=== PATIENT | male | born 1975 | race African-American/Black ===

== ENCOUNTER 2020-05-28 13:08 | Emergency (ER) | payer SELFPAY ==
[~2020-05-28] VITALS: Ht 177.8 cm; Wt 82.0 kg
[2020-05-28 14:23] LABS: BASO # 0.1 x10^3/uL (0.0-0.2); BASO % 1 % (0-3); EOS # 0.3 x10^3/uL (0.0-0.7); EOS % 5 % (0-3); HEMOGLOBIN 15.2 g/dL (13.0-17.5); LYMPH # 1.5 x10^3/uL (1.0-4.8); LYMPH % 22 % (24-48); MEAN CORPUSCULAR HEMOGLOBIN 27 pg (25-35); MEAN CORPUSCULAR HGB CONC 33 g/dL (31-37); MEAN CORPUSCULAR VOLUME 83 fL (79-100); MONO # 0.9 x10^3/uL (0.0-1.1); MONO % 13 % (0-9); NEUT # 3.9 x10^3/uL (1.8-7.7); NEUT % 59 % (31-73); PLATELET COUNT 347 x10^3/uL (140-400); RED BLOOD COUNT 5.55 x10^6/uL (4.30-5.70); RED CELL DISTRIBUTION WIDTH 14.6 % (11.5-14.5); WHITE BLOOD COUNT 6.7 x10^3/uL (4.0-11.0)
[2020-05-28] MEDS ORDERED: cefTRIAXone IV Push 1 GM VIAL. IVP ONE (14:30)
[2020-05-28] MEDS ORDERED: metroNIDAZOLE 500 MG TABLET PO ONE (14:30)
[2020-05-28] MEDS ORDERED: IV NORMAL SALINE 1000ML BAG 1,000 ML IV ONE (14:30)
[2020-05-28] MEDS ORDERED: AZITHROMYCIN 250 MG TABLET. PO ONE (14:30)
[2020-05-28 14:33] LABS: PROTHROMBIN TIME PATIENT 14.2 SEC (11.7-14.0)
[2020-05-28 14:43] LABS: CALCIUM 9.2 mg/dL (8.5-10.1); CREATININE 0.9 mg/dL (0.7-1.3); GFR 110.9; POTASSIUM 4.2 mmol/L (3.5-5.1)
--- NOTE | 2020-05-28 14:48 | RAD ---
PORTABLE CHEST 1V History: Fever, body aches Comparison: None. Findings: Single view of the chest is submitted. There is no dependent pleural fluid, pneumothorax, or lobar infiltrate. Heart size is considered within normal limits. Impression: 1. No significant infiltrate is identified by radiograph. Electronically signed by: Ishaan Bhakta MD (05/28/2020 2:45 PM) [id number]
[2020-05-28 14:55] LABS: ALBUMIN 3.5 g/dL (3.4-5.0); CREATINE KINASE 68 U/L (39-308); TOTAL BILIRUBIN 0.5 mg/dL (0.2-1.0); TOTAL PROTEIN 6.9 g/dL (6.4-8.2)
--- NOTE | 2020-05-28 15:27 | PHYS DOC ---
Past Medical History Past Medical History: No Pertinent History Past Surgical History: No Surgical History Smoking Status: Current Some Day Smoker Alcohol Use: None General Adult EDM: Chief Complaint: GENERALIZED BODY ACHES HPI: HPI: Patient is a 45 year old male with no significant medical history who presents to the ED today complaining of body aches for 2 days. Patient is also complaining of subjective fevers. Patient is also concerned about STDs, he states he has had dysuria and would like to be treated. Review of Systems: Review of Systems: Constitutional: Reports body aches. Denies fever or chills. [] Eyes: Denies change in visual acuity. [] HENT: Denies nasal congestion or sore throat. [] Respiratory: Denies cough or shortness of breath. [] Cardiovascular: Denies chest pain or edema. [] GI: Denies abdominal pain, nausea, vomiting, bloody stools or diarrhea. [] : Reports dysuria and concern for STDs Musculoskeletal: Denies back pain or joint pain. [] Integument: Denies rash. [] Neurologic: Denies headache, focal weakness or sensory changes. [] Endocrine: Denies polyuria or polydipsia. [] Lymphatic: Denies swollen glands. [] Psychiatric: Denies depression or anxiety. [] Heart Score: Risk Factors: Risk Factors: DM, Current or recent (<one month) smoker, HTN, HLP, family history of CAD, obesity. Risk Scores: Score 0 - 3: 2.5% MACE over next 6 weeks - Discharge Home Score 4 - 6: 20.3% MACE over next 6 weeks - Admit for Clinical Observation Score 7 - 10: 72.7% MACE over next 6 weeks - Early Invasive Strategies Current Medications: Current Medications Medications (Trade) Dose Ordered Sig/Giovana Start Time Stop Time Status Last Admin Dose Admin Azithromycin (Zithromax) 1,000 mg 1X ONCE 05/28/20 14:30 05/28/20 14:31 DC 05/28/20 14:26 1,000 MG Ceftriaxone Sodium (Rocephin) 1 gm 1X ONCE 05/28/20 14:30 05/28/20 14:31 DC 05/28/20 14:26 1 GM Metronidazole (Flagyl) 2,000 mg 1X ONCE 05/28/20 14:30 05/28/20 14:31 DC 05/28/20 14:26 2,000 MG Sodium Chloride 1,000 ml @ 1,000 mls/hr 1X ONCE 05/28/20 14:30 05/28/20 15:29 05/28/20 14:30 1,000 MLS/HR Allergies: Allergies: Allergies Coded Allergies Type Severity Reaction Last Updated Verified No Known Drug Allergies 05/28/20 No Physical Exam: PE: Constitutional: Well developed, well nourished, no acute distress, non-toxic appearance. [] HENT: Normocephalic, atraumatic, bilateral external ears normal, oropharynx moist, no oral exudates, nose normal. [] Eyes: PERRLA, EOMI, conjunctiva normal, no discharge. [] Neck: Normal range of motion, no tenderness, supple, no stridor. [] Cardiovascular:Heart rate regular rhythm, no murmur [] Lungs & Thorax: Bilateral breath sounds clear to auscultation [] Abdomen: Bowel sounds normal, soft, no tenderness, no masses, no pulsatile masses. [] Skin: Warm, dry, no erythema, no rash. [] Back: No tenderness, no CVA tenderness. [] Extremities: No tenderness, no cyanosis, no clubbing, ROM intact, no edema. [] Neurologic: Alert and oriented X 3, normal motor function, normal sensory function, no focal deficits noted. [] Psychologic: Affect normal, judgement normal, mood normal. [] Current Patient Data: Labs: Laboratory Tests Test 05/28/20 14:05 White Blood Count 6.7 x10^3/uL (4.0-11.0) Red Blood Count 5.55 x10^6/uL (4.30-5.70) Hemoglobin 15.2 g/dL (13.0-17.5) Hematocrit 46.0 % (39.0-53.0) Mean Corpuscular Volume 83 fL (79-100) Mean Corpuscular Hemoglobin 27 pg (25-35) Mean Corpuscular Hemoglobin Concent 33 g/dL (31-37) Red Cell Distribution Width 14.6 % (11.5-14.5) H Platelet Count 347 x10^3/uL (140-400) Neutrophils (%) (Auto) 59 % (31-73) Lymphocytes (%) (Auto) 22 % (24-48) L Monocytes (%) (Auto) 13 % (0-9) H Eosinophils (%) (Auto) 5 % (0-3) H Basophils (%) (Auto) 1 % (0-3) Neutrophils # (Auto) 3.9 x10^3/uL (1.8-7.7) Lymphocytes # (Auto) 1.5 x10^3/uL (1.0-4.8) Monocytes # (Auto) 0.9 x10^3/uL (0.0-1.1) Eosinophils # (Auto) 0.3 x10^3/uL (0.0-0.7) Basophils # (Auto) 0.1 x10^3/uL (0.0-0.2) Prothrombin Time 14.2 SEC (11.7-14.0) H Prothrombin Time INR 1.1 (0.8-1.1) Activated Partial Thromboplast Time 33 SEC (24-38) Sodium Level 140 mmol/L (136-145) Potassium Level 4.2 mmol/L (3.5-5.1) Chloride Level 101 mmol/L (98-107) Carbon Dioxide Level 32 mmol/L (21-32) Anion Gap 7 (6-14) Blood Urea Nitrogen 14 mg/dL (8-26) Creatinine 0.9 mg/dL (0.7-1.3) Estimated GFR (Cockcroft-Gault) 110.9 BUN/Creatinine Ratio 16 (6-20) Glucose Level 91 mg/dL (70-99) Lactic Acid Level 1.1 mmol/L (0.4-2.0) Calcium Level 9.2 mg/dL (8.5-10.1) Total Bilirubin 0.5 mg/dL (0.2-1.0) Aspartate Amino Transferase (AST) 15 U/L (15-37) Alanine Aminotransferase (ALT) 21 U/L (16-63) Alkaline Phosphatase 93 U/L (46-116) Creatine Kinase 68 U/L (39-308) Creatine Kinase MB (Mass) 1.0 ng/mL (0.0-3.6) Creatine Kinase MB Relative Index % (0-4) Troponin I Quantitative < 0.017 ng/mL (0.000-0.055) WU-Fwo-Y-Type Natriuretic Peptide 39 pg/mL (0-124) Total Protein 6.9 g/dL (6.4-8.2) Albumin 3.5 g/dL (3.4-5.0) Albumin/Globulin Ratio 1.0 (1.0-1.7) Lipase 86 U/L (73-393) Laboratory Tests 05/28/20 14:05 Laboratory Tests 05/28/20 14:05 Vital Signs: Vital Signs Date Time Temp Pulse Resp B/P (MAP) Pulse Ox O2 Delivery O2 Flow Rate FiO2 05/28/20 13:52 99.5 94 18 141/96 (111) 99 Room Air 99.5 EKG: EKG: [] Radiology/Procedures: Radiology/Procedures: [] Course & Med Decision Making: Course & Med Decision Making Pertinent Labs and Imaging studies reviewed. (See chart for details) This is a 45-year-old male patient presenting to the ED today complaining of generalized body aches, subjective fevers as well as concern for STDs. Symptoms for 2 days. Temperature 99.5-patient is a durant, COVID19 testing was ordered. CBC, CMP, lipase, EKG, chest [id number] for any acute findings. Patient was treated for STDs and discharged. Follow-up with PCP in the next 1 to 2 weeks. Dragon Disclaimer: Dragon Disclaimer: This electronic medical record was generated, in whole or in part, using a voice recognition dictation system. Departure Departure Impression: Primary Impression: Fever Qualified Codes: R50.9 - Fever, unspecified Additional Impressions: Body aches Concern about STD in male without diagnosis Disposition: 01 HOME, SELF-CARE Condition: STABLE Referrals: NO PCP (PCP) followup with your doctor in 1-2 weeks Patient Instructions: Fever, Adult, [id number], Sexually Transmitted Disease, [id number] Additional Instructions: You were evaluated in the emergency room, you have a pending COVID19 test, we will call you with the results as soon as they come back. In the meantime quarantine yourself until you hear from us. You were treated for sexually transmitted diseases. Please use protection at all times. Contact all your partners, let them know you were treated for STDs and ask them to seek treatment. Justicifation of Admission Dx: Justifications for Admission: Justification of Admission Dx: N/A MAVIS MARCUS APRN May 28, 2020 15:27
[2020-05-28 16:23] VITALS: BP 149/91
[2020-05-28 17:18] LABS: INFLUENZA A PATIENT NEGATIVE (NEGATIVE); INFLUENZA B PATIENT NEGATIVE (NEGATIVE)
--- NOTE | 2020-05-30 10:12 | NUR ---
IP: Attempted to contact pt by phone concerning COVID results. No answer.
== END 2020-05-28 16:25 | disposition home or self-care (01) ==
LOC: ER 13:08
DX: R50.9 Fever, unspecified (principal); Z20.828 Contact with and (suspected) exposure to other viral communicable diseases; R30.0 Dysuria; R52 Pain, unspecified; Z87.891 Personal history of nicotine dependence; Z20.2 Contact with and (suspected) exposure to infections with a predominantly sexual mode of transmission
CPT/HCPCS: 36415; 71045; 80053; 82550; 82553; 83605; 83690; 83880; 84484; 85025; 85610; 85730; 87040; 87804; 93005; 96361; 96374; 99285; J0696; J7030; U0003